=== PATIENT | female | born 1950 | race Caucasian/White ===

== ENCOUNTER 2018-11-24 10:36 | Inpatient (IN) ==
[2018-11-24] MEDS ORDERED: SINEMET 25/100 PO PRN (12:13)
[2018-11-24] MEDS ORDERED: SEROQUEL PO PRN (12:13)
[2018-11-24] MEDS ORDERED: DESYREL PO PRN (12:13)
[2018-11-24] MEDS ORDERED: DULCOLAX PR PRN (12:13)
[2018-11-24] MEDS ORDERED: SENOKOT PO PRN (12:13)
[2018-11-24] MEDS ORDERED: NICODERM PATCH TD PRN (12:13)
[2018-11-24] MEDS ORDERED: IMODIUM PO PRN (12:13)
[2018-11-24] MEDS ORDERED: D5W 1,000 ML IV PRN (12:13)
[2018-11-24] MEDS ORDERED: BENTYL PO PRN (12:13)
[2018-11-24] MEDS ORDERED: MAALOX PLUS LIQUID PO PRN (12:13)
[2018-11-24] MEDS ORDERED: PHENOBARBITAL IV PRN (12:13)
[2018-11-24] MEDS ORDERED: TUBERSOL ID ONE (12:13)
[2018-11-24] MEDS ORDERED: ZOFRAN IV PRN (12:13)
[2018-11-24 12:32] LABS: UR AMPHETAMINES QUAL NONE DETECTED (NONE DETECT); UR BARBITUATES QUAL NONE DETECTED (NONE DETECT); UR BENZODIAZEPIN QUAL NONE DETECTED (NONE DETECT); UR CANNABINOIDS QUAL NONE DETECTED (NONE DETECT); UR COCAINE QUAL NONE DETECTED (NONE DETECT); UR METHADONE QUAL NONE DETECTED (NONE DETECT); UR METHAMPHETAMINE QUAL NONE DETECTED (NONE DETECT); UR OPIATES QUAL NONE DETECTED (NONE DETECT); UR OXYCODONE QUAL PRESUMPTIVE POSITIVE (NONE DETECT); UR PCP QUAL NONE DETECTED (NONE DETECT); UR PROPOXYPHENE QUAL NONE DETECTED (NONE DETECT); UR TCA QUAL NONE DETECTED (NONE DETECT)
[2018-11-24 12:45] LABS: HEMATOCRIT 36.9 % (37.0-47.0); HEMOGLOBIN 12.5 g/dL (12.0-16.0); MCH 29.6 PG (27-31); MCHC 33.9 g/dL (33-37); MCV 87.4 FL (81-99); MPV 10.7 FL (7.4-10.4); RBC 4.22 XMIL (4.2-5.4); RDW 13.7 % (11.5-14.5); WBC 4.49 X1000 (4.8-10.8)
[2018-11-24 12:56] LABS: AMYLASE 44 U/L (20-200); LIPASE 15 U/L (13-60)
[2018-11-24 13:02] LABS: INR 0.88; PROTIME 12.4 Seconds (11.0-16.0)
[2018-11-24 13:09] LABS: AGAP 12; ALBUMIN 3.9 g/dL (3.5-5.0); ALKALINE PHOSPHATASE 91 U/L (32-104); BUN 15 mg/dL (8-22); CALCIUM 8.6 mg/dL (8.8-10.2); CHLORIDE 104 mmol/L (98-107); COSMO 283; CREATININE 0.6 mg/dL (0.5-0.9); ESTIMATED GFR > 60; GLUCOSE 145 mg/dL (70-104); GOT 20 U/L (10-30); GPT 20 U/L (10-36); POTASSIUM 4.1 mmol/L (3.5-5.1); SODIUM 140 mmol/L (136-145); TCO2 24 mmol/L (25-35); TOTAL PROTEIN 6.7 g/dL (6.3-8.3)
[2018-11-24] MEDS: TYLENOL PO PRN ×2 (13:49→19:36)
[2018-11-24 14:04] LABS: BILIRUBIN URINE NEGATIVE (NEGATIVE); BLOOD URINE NEGATIVE (NEGATIVE); CLARITY CLEAR (CLEAR); COLOR YELLOW; GLUCOSE URINE NEGATIVE (NEGATIVE); KETONE URINE NEGATIVE (NEGATIVE); LEUKOCYTES URINE 1+ (NEGATIVE); NITRITE URINE NEGATIVE (NEGATIVE); PROTEIN URINE NEGATIVE (NEGATIVE); UROBILINOGEN URINE NORMAL
[2018-11-24 14:23] LABS: URINE WBC <10 /HPF (<10)
[2018-11-24 14:24] LABS: URINE EPITHELIAL CELLS >10 /HPF (<10)
[2018-11-24 14:25] LABS: URINE BACTERIA 1+ /HFP; URINE CAST NONE SEEN /LPF; URINE CRYSTAL NONE SEEN /HPF; URINE SMALL ROUND CELLS RENAL PRESENT; URINE SOURCE CLEAN CATCH; URINE YEAST NONE SEEN /HPF
[2018-11-24] MEDS: ZOFRAN ODT PO PRN (14:50)
[2018-11-24] MEDS: MOTRIN PO PRN ×2 (14:50→22:11)
[2018-11-24] MEDS: ATARAX PO PRN ×2 (16:28→23:42)
[2018-11-24] MEDS: LIBRIUM PO PRN (21:25)
[2018-11-24] MEDS: ROBAXIN PO PRN (22:51)
[2018-11-25] MEDS: ZOFRAN ODT PO PRN ×3 (03:38→20:14)
[2018-11-25] MEDS: TYLENOL PO PRN ×3 (05:53→17:28)
[2018-11-25] MEDS: LIBRIUM PO PRN (05:53)
[2018-11-25] MEDS: PROTONIX PO SCH (06:07)
[2018-11-25] MEDS: MOTRIN PO PRN (07:37)
[2018-11-25] MEDS ORDERED: THERA M PLUS PO SCH (09:00)
[2018-11-25] MEDS: VITAMIN B-1 PO SCH (09:56)
[2018-11-25] MEDS: SUBOXONE 2 MG/0.5 MG FILM SL SCH ×2 (09:56→21:01)
[2018-11-25] MEDS: FOLIC ACID PO SCH (09:56)
[2018-11-25] MEDS: ATARAX PO PRN (09:56)
[2018-11-25] MEDS ORDERED: ANTIVERT PO PRN (10:33)
[2018-11-25] MEDS: RESTASIS 0.05% OPH DROPS BOTH EYES SCH (12:13)
[2018-11-25] MEDS: TORADOL IV PRN ×2 (12:14→18:33)
[2018-11-25] MEDS: VALTREX PO SCH (21:01)
[2018-11-25] MEDS: DESYREL PO SCH (21:01)
[2018-11-25] MEDS: LIPITOR PO SCH (21:01)
--- NOTE | 2018-11-25 23:43 | PROGRESS NOTE ---
DATE: 11/25/2018 SUBJECTIVE: Patient notes that she feels terrible this morning. Having increased muscle aches, increased back pain. No nausea this morning. Having some sweating. Denies any chest pains or palpitations. Denies any GI or issues otherwise. PHYSICAL EXAMINATION: Vital Signs: Reviewed. General: She is awake, alert. She is in no current respiratory distress. HEENT: Normocephalic. Neck: Supple. Cardiovascular: Regular rate. Chest: Clear. Abdomen: Soft, nondistended. Extremities: Moves all extremities. ASSESSMENT: 1. Nausea, vomiting. 2. Abdominal pain. 3. Myalgias. 4. Paresthesias. 5. Chronic back pain with acute worsening. 6. Opiate overusage and withdrawal. PLAN: We will continue patient in the hospital. Continue to follow. We will start her on Suboxone today as it has been 24 hours and further orders as needed. cc: Aurelio Peralta MD
[2018-11-26] MEDS: RESTASIS 0.05% OPH DROPS BOTH EYES SCH ×2 (01:47→11:28)
[2018-11-26] MEDS: MOTRIN PO PRN (01:47)
[2018-11-26] MEDS: PROTONIX PO SCH (06:13)
[2018-11-26] MEDS: SYNTHROID PO SCH (06:13)
[2018-11-26] MEDS: EFFEXOR XR PO SCH (09:57)
[2018-11-26] MEDS: NAMENDA PO SCH (09:57)
[2018-11-26] MEDS: LIDODERM TOP SCH (09:57)
[2018-11-26] MEDS: COZAAR PO SCH (09:57)
[2018-11-26] MEDS: SUBOXONE 2 MG/0.5 MG FILM SL SCH ×2 (09:57→21:10)
[2018-11-26] MEDS: FOLIC ACID PO SCH (09:57)
[2018-11-26] MEDS: VITAMIN B-1 PO SCH (09:57)
[2018-11-26] MEDS: VALTREX PO SCH ×2 (09:57→21:12)
[2018-11-26] MEDS: THERA M PLUS PO SCH (09:57)
[2018-11-26] MEDS: TORADOL IV PRN (15:43)
[2018-11-26] MEDS: ATARAX PO PRN (17:21)
[2018-11-26] MEDS: TYLENOL PO PRN (17:21)
[2018-11-26] MEDS: LIBRIUM PO PRN (20:47)
[2018-11-26] MEDS: LIPITOR PO SCH (21:12)
[2018-11-26] MEDS: DESYREL PO SCH (21:12)
--- NOTE | 2018-11-26 21:52 | PROGRESS NOTE ---
DATE: 11/26/2018 SUBJECTIVE: Patient notes overall she is feeling tremendously better since she started taking Suboxone. Denies any fevers or chills. States her muscle aches are better. PHYSICAL: Vital Signs: Reviewed. Temperature 97.4 degrees, pulse 79, respiratory 20, BP 156/81. General: Patient is awake, very pleasant to talk with, she is in no current respiratory distress. HEENT: Normocephalic. Neck: Supple. CV: Regular rate. Chest: Clear. Abdomen: Soft. Extremities: Moves all extremities. ASSESSMENT: 1. Nausea, vomiting. 2. Abdominal pain. 3. Myalgias. 4. Paresthesias. 5. Paroxysmal sweating. 6. Opiate abuse withdrawal and continued stabilization with Suboxone. We will continue on 4 mg and attempt to wean as tolerated. cc: Aurelio Peralta MD
[2018-11-27] MEDS: TORADOL IV PRN ×3 (04:40→20:16)
[2018-11-27] MEDS: TYLENOL PO PRN (04:40)
[2018-11-27] MEDS: PROTONIX PO SCH (06:17)
[2018-11-27] MEDS: SYNTHROID PO SCH (06:18)
[2018-11-27] MEDS: VALTREX PO SCH ×2 (09:41→20:00)
[2018-11-27] MEDS: THERA M PLUS PO SCH (09:41)
[2018-11-27] MEDS: EFFEXOR XR PO SCH (09:41)
[2018-11-27] MEDS: ZOFRAN ODT PO PRN (09:41)
[2018-11-27] MEDS: RESTASIS 0.05% OPH DROPS BOTH EYES SCH ×2 (09:41→20:00)
[2018-11-27] MEDS: FOLIC ACID PO SCH (09:41)
[2018-11-27] MEDS: LIDODERM TOP SCH (09:41)
[2018-11-27] MEDS: COZAAR PO SCH (09:41)
[2018-11-27] MEDS: SUBOXONE 2 MG/0.5 MG FILM SL SCH (09:41)
[2018-11-27] MEDS: NAMENDA PO SCH (09:41)
[2018-11-27] MEDS: VITAMIN B-1 PO SCH (09:41)
[2018-11-27] MEDS: SUBOXONE 8 MG/2 MG FILM SL SCH (20:00)
[2018-11-27] MEDS: DESYREL PO SCH (20:00)
[2018-11-27] MEDS: LIPITOR PO SCH (20:00)
--- NOTE | 2018-11-27 21:29 | PROGRESS NOTE ---
DATE: 11/27/2018 SUBJECTIVE: Patient notes that she does not feel great. Still having back pain and muscle aches. Still feels very anxious, nervous and worried about going home. PHYSICAL EXAMINATION: Vital Signs: Reviewed. She is awake, alert. She is in no current respiratory distress. HEENT: Normocephalic. Neck: Supple. Cardiovascular: Regular rate. Chest: Clear. Abdomen: Soft. Extremities: Moves all extremities. ASSESSMENT: 1. Nausea and vomiting. 2. Abdominal pain. 3. Myalgias. 4. Acute on chronic back pain. 5. Paresthesias. 6. Paroxysmal sweating, improved. PLAN: We will continue patient in the hospital. We will actually increase Suboxone to 8/2 and will follow. Hopefully, this will improve her symptoms a little bit better. Further orders as needed. cc: Aurelio Peralta MD
[2018-11-28] MEDS: LIBRIUM PO PRN (01:07)
[2018-11-28] MEDS: TORADOL IV PRN (05:47)
[2018-11-28] MEDS: SYNTHROID PO SCH ×2 (05:48→07:36)
[2018-11-28] MEDS: PROTONIX PO SCH (07:36)
[2018-11-28] MEDS: SUBOXONE 8 MG/2 MG FILM SL SCH (09:01)
[2018-11-28] MEDS: LIDODERM TOP SCH (09:50)
[2018-11-28] MEDS: RESTASIS 0.05% OPH DROPS BOTH EYES SCH ×2 (09:51→20:15)
[2018-11-28] MEDS: COZAAR PO SCH (09:52)
[2018-11-28] MEDS: VALTREX PO SCH ×2 (09:54→20:15)
[2018-11-28] MEDS: EFFEXOR XR PO SCH (09:55)
[2018-11-28] MEDS: VITAMIN B-1 PO SCH (09:55)
[2018-11-28] MEDS: NAMENDA PO SCH (09:55)
[2018-11-28] MEDS: FOLIC ACID PO SCH (09:55)
[2018-11-28] MEDS: THERA M PLUS PO SCH (09:56)
[2018-11-28] MEDS ORDERED: ATARAX PO PRN (18:05)
--- NOTE | 2018-11-28 19:28 | PROGRESS NOTE ---
DATE: 11/28/2018 SUBJECTIVE: The patient states she feels terrible this morning. States she feels lightheaded, dizzy, and woozy. Denies any focalized numbness, tingling, or weakness. Denies any fevers or chills. States she is tired when she gets out of bed. Notes that she is still sleepy. PHYSICAL EXAMINATION: Vital Signs: Reviewed. She is afebrile. Blood pressure is stable. Heart rate in the 80s. General: The patient is in no current respiratory distress. She is pleasant to talk with. HEENT: Normocephalic. Neck: Supple. Cardiovascular: Regular rate. Chest: Clear. Abdomen: Soft. Extremities: Moves all extremities. ASSESSMENT: 1. Nausea and vomiting. 2. Abdominal pain. 3. Myalgias. 4. Dizziness. 5. Generalized weakness. 6. Opiate abuse, withdrawal, and stabilization. 7. Dementia. PLAN: Overall, the patient's dementia certainly seems to be creating some havoc with her improvement in her overall discharge. At this point, we will hold all sedatives, including sleep aids at night, and see if this will assist her in waking up any better. We will decrease her Suboxone as well. It is unclear how much of her symptoms is due to her dementia and anxiety versus true opiate withdrawal at this point. cc: Aurelio Peralta MD
[2018-11-28] MEDS: LIPITOR PO SCH (20:15)
[2018-11-28] MEDS: ROBAXIN PO PRN (20:16)
[2018-11-29] MEDS: ROBAXIN PO PRN ×2 (01:48→09:03)
[2018-11-29] MEDS: MOTRIN PO PRN (01:52)
[2018-11-29] MEDS: TYLENOL PO PRN (05:07)
[2018-11-29] MEDS: SYNTHROID PO SCH (06:40)
[2018-11-29] MEDS: PROTONIX PO SCH (06:58)
[2018-11-29 08:35] VITALS: BP 156/76
[2018-11-29] MEDS: EFFEXOR XR PO SCH (09:03)
[2018-11-29] MEDS: TORADOL IV PRN (09:03)
[2018-11-29] MEDS: COZAAR PO SCH (09:03)
[2018-11-29] MEDS: NAMENDA PO SCH (09:03)
[2018-11-29] MEDS: FOLIC ACID PO SCH (09:03)
[2018-11-29] MEDS: RESTASIS 0.05% OPH DROPS BOTH EYES SCH (09:04)
[2018-11-29] MEDS: VALTREX PO SCH (09:04)
[2018-11-29] MEDS: THERA M PLUS PO SCH (09:04)
[2018-11-29] MEDS: VITAMIN B-1 PO SCH (09:04)
[2018-11-29] MEDS: LIDODERM TOP SCH (09:04)
--- NOTE | 2018-11-29 14:17 | DISCHARGE SUMMARY ---
ADMISSION DATE: 11/24/2018 DISCHARGE DATE: 11/29/2018 DISCHARGE DIAGNOSES: 1. Nausea/vomiting with abdominal pain. 2. Myalgias. 3. Depression. 4. History of dementia. 5. Degenerative joint disease (DJD). 6. Opiate abuse, withdrawal, and continued stabilization. CONSULTATIONS: None. PROCEDURES: None. BRIEF HOSPITAL COURSE: Patient is a 68-year-old female who presented to [facility] program secondary to overusing opiates. Notes that she does have chronic back problems and has had an acute worsening but she has been overusing her medications at home. From an opiate withdrawal standpoint, she had very little ill effects. Her hospital course was prolonged, however, secondary to her chronic other symptoms to include depression and anxiety. This continued to be problematic during the hospital stay, making it somewhat difficult at times to discern depressive symptoms from her opiate withdrawal symptoms. On discharge, she is awake, alert. She is in no distress. DISPOSITION: Patient will be discharged home. Discussed with her that she does need to follow up outpatient with treatment of her depression and anxiety. Discussed that she needs outpatient life counseling as well as drug counseling. Discussed that pain medication does not in fact fix pain and should not be used for chronic pain, but only for acute worsening of her chronic pain. We will continue her on Suboxone 8 mg twice daily and we will follow. cc: Aurelio Peralta MD
== END 2018-11-29 11:18 | disposition home or self-care (01) | DRG 897 ==
LOC: P.DIRADM 11:17 → P.MEDSURG 11:21
PROVIDERS: ADMIT Family Medicine; ATTEND Family Medicine
CPT/HCPCS: 80053; 80104; 80301; 80305; 80307; 80320; 81001; 82055; 82150; 82948; 83690; 85027; 85610; 86580; 87088; A9270; G0431; G0434; G0477; G0480; G6040; J1885; XXXXX